=== PATIENT | male | born 1945 | race Caucasian/White ===

== ENCOUNTER 2018-01-05 16:19 | Emergency (ER) | payer MEDICARE, SELFPAY ==
[2018-01-05 16:20] VITALS: BP 151/79; PULSE 79; RESP 16; TEMP 37.1; O2SAT 96; BMI 27.8
[2018-01-05 16:45] VITALS: BP 128/71; PULSE 75; RESP 20; O2SAT 98
--- NOTE | 2018-01-05 16:50 | CT_ITS ---
STUDY: CT BRAIN WITHOUT CONTRAST REASON FOR EXAM: Male, 72 years old. Confusion RADIATION DOSAGE (If Supplied By Facility): CTDIvol = ( 44.99 ) mGy, DLP = ( 812.98 ) mGycm TECHNIQUE: Transaxial CT imaging of the brain was performed without administration of intravenous contrast material. Individualized dose optimization techniques were used for this CT. COMPARISON: None. FINDINGS: Normal soft tissue structures. Normal calvarium. There is a subdural hematoma with mixed density seen overlying the left hemisphere. This hematoma has a width of approximately 6 mm. And may be acute or acute on chronic with a mixed density. There is subjacent impression upon the left hemisphere with mild left to right subfalcine shift of midline structures by approximately 5 mm. No parenchymal hemorrhage is identified. There is no evidence of downward herniation. There is mild volume loss consistent with patient age in association with the supratentorial brain as well as the infratentorial brain. Normal basal ganglia and thalami. Normal brainstem. Vascular calcifications are present. There are no findings of an acute ischemic infarction. Normal visualized paranasal sinuses. CT/Brain/Head without Contrast IMPRESSION: There is a mixed density subdural hematoma overlying the left hemisphere with approximate 6 mm [id number] shift of midline structures. Suspect this hemorrhage is either acute or subacute. See above. N.B. : The above information has been verbally conveyed by Kate Ball MD to Dr. Eduarda Hernandez , Referring Physician, on 01/05/2018 17:51:12 (ET). Electronically Signed: aKte Ball MD at 17:45 EDT Tel , Service support , N.B. : The above information has been verbally conveyed by Kate Ball MD to Dr. Eduarda Hernandez , Referring Physician, on 01/05/2018 17:51:12 (ET).
--- NOTE | 2018-01-05 16:51 | EKG12_ITS ---
Test Reason : NEURO Blood Pressure : / mmHG Vent. Rate : 071 BPM Atrial Rate : 071 BPM P-R Int : 174 ms QRS Dur : 126 ms QT Int : 412 ms P-R-T Axes : 035 -52 031 degrees QTc Int : 447 ms Normal sinus rhythm Left axis deviation Left ventricular hypertrophy with QRS widening Abnormal ECG Confirmed by ARRON GEE, SAVANNAH ([id number]), editor newspaper BELKYS LEAHY ([id number]) on 01/08/2018 1:12:34 PM Referred By: ABDULAZIZ Confirmed By:SAVANNAH HELLER MD
[2018-01-05 17:16] LABS: Absolute Lymphocyte Count 1.86 X10^3/ul (0.83-4.51); Absolute Neutrophil Count 6.3 X10^3/uL (2.0-7.7); Basophil# 0.11 X10^3/uL; Basophil% 1.1 % (0-1); Eosinophil# 0.41 X10^3/uL; Eosinophils% 4.3 % (0-5); Hematocrit 38.5 % (40-54); Hemoglobin 12.8 g/dl (13.0-16.5); Lymphocyte # 1.86 X10^3/ul (4.0); Lymphocyte % 19.4 % (19-41); Mean Corp Hgb Conc 33.2 g/gl (32-36); Mean Corpuscular Hgb 28.6 pg (27.0-32.0); Mean Corpuscular Volume 86.1 fL (80-94); Monocyte# 0.93 X10^3/uL; Monocyte% 9.7 % (0-10); Neutrophil # 6.27 X10^3/uL (2.7-7.7); Neutrophil % 65.4 % (47-70); Platelet Count 178 K/mm3 (150-450); RBC Distribution Width CV 13.1 % (11.6-14.6); RBC Distribution Width SD 40.4 fl (35.1-43.9); Red Blood Count 4.47 M/mm3 (4.6-6.2); White Blood Count 9.6 K/mm3 (4.4-11.0)
[2018-01-05 17:17] LABS: POSITIVE COUNT NO; POSITIVE DIFFERENTIAL NO; POSITIVE MORPHOLOGY NO
[2018-01-05 17:19] LABS: International Normalized Ratio 2.4; Prothrombin Time (Protime)PT. 26.6 SECONDS (11.7-14.9)
[2018-01-05 17:25] LABS: Anion Gap 10 (5-15); BUN 14 mg/dL (7-18); BUN/Creat Ratio 15.7 RATIO (10-20); Calcium,Total 8.5 mg/dL (8.5-10.1); Chloride 109 mmol/L (98-107); Creatinine, Serum 0.89 mg/dL (0.70-1.30); EST Glomerular Filtration Rate 89 mL/min (>60); Est Glom Filt Rate - Afr Amer 108 mL/min (>60); Estimated Creatinine Clearance 73.65 ml/min; Glucose 90 mg/dL (74-106); Sodium Level 142 mmol/L (136-145)
[2018-01-05 17:30] VITALS: BP 128/71; PULSE 70; RESP 18; O2SAT 97
[2018-01-05 18:06] VITALS: BP 151/91; PULSE 70; RESP 15; TEMP 36.9; O2SAT 99
--- NOTE | 2018-01-05 18:19 | ED.VISSUMM ---
- ER Visit Summary Date of Service: 01/05/18 Chief Complaint: [] Slurred speech History of Present Illness: The patient is a 72 M [] complaining of slurred speech prior to arrival today after working outside in the sun. Patient denies any headache, nausea or vomiting, chest pain, shortness of breath, paresthesias. He reports his symptoms lasted 2 minutes and then resolved completely. He does report he is on Coumadin for history of coronary artery disease status post CABG. BGT upon arrival was 93. No other complaints at this time. Physical Examination: [] Afebrile, vital signs stable. NIH score upon arrival was 0. Cranial nerves II through XII intact. Loss 5 out of 5 bilateral upper and lower extremity muscle strength. Sensory intact throughout all extremities and the face. Cardiovascular exam is regular rate and rhythm. Lungs are clear to auscultation. Abdomen is soft and nontender. Test Results: [] INR measured 2.4. CBC, BMP within normal limits. CT of the head reveals acute left-sided subdural with 5-6 mm midline shift. Emergency Department Course and Treatment: [] Patient was reevaluated on serial exam and had a NIH score of 0 again. Patient was counseled regarding his diagnostic and laboratory findings. Patient was given vitamin K and K Centra. Case discussed with neuro aircraft mechanic structures at [facility]. They will except the patient in transfer from ER to ER. Treatment Plan: [] Transfer to [facility] for evaluation by neurosurgical staff. Disposition: [] Transfer to [facility], critical. Impression: [] Acute subdural hemorrhage This note was generated with [employer] dictation software. It may contain incorrect words, spelling, and punctuation that were not noted in review of the chart prior to signing ED Disposition - Plan for ED Patient: Chief Complaint: Neuro S/Sx Referrals: Eyad Duvall MD [Primary Care Provider] -
--- NOTE | 2018-01-05 18:22 | ED.DCSUM_ITS ---
- ER Visit Summary Date of Service: 01/05/18 Chief Complaint: [] Slurred speech History of Present Illness: The patient is a 72 M [] complaining of slurred speech prior to arrival today after working outside in the sun. Patient denies any headache, nausea or vomiting, chest pain, shortness of breath, paresthesias. He reports his symptoms lasted 2 minutes and then resolved completely. He does report he is on Coumadin for history of coronary artery disease status post CABG. BGT upon arrival was 93. No other complaints at this time. Physical Examination: [] Afebrile, vital signs stable. NIH score upon arrival was 0. Cranial nerves II through XII intact. Loss 5 out of 5 bilateral upper and lower extremity muscle strength. Sensory intact throughout all extremities and the face. Cardiovascular exam is regular rate and rhythm. Lungs are clear to auscultation. Abdomen is soft and nontender. Test Results: [] INR measured 2.4. CBC, BMP within normal limits. CT of the head reveals acute left-sided subdural with 5-6 mm midline shift. Emergency Department Course and Treatment: [] Patient was reevaluated on serial exam and had a NIH score of 0 again. Patient was counseled regarding his diagnostic and laboratory findings. Patient was given vitamin K and K Centra. Case discussed with neuro residential pest control technician at [facility]. They will except the patient in transfer from ER to ER. Treatment Plan: [] Transfer to [facility] for evaluation by neurosurgical staff. Disposition: [] Transfer to [facility], critical. Impression: [] Acute subdural hemorrhage This note was generated with [employer] dictation software. It may contain incorrect words, spelling, and punctuation that were not noted in review of the chart prior to signing ED Disposition - Plan for ED Patient: Chief Complaint: Neuro S/Sx Referrals: Eyad Duvall MD [Primary Care Provider] -
[2018-01-05 18:24] VITALS: BP 151/91; PULSE 70; RESP 18; O2SAT 98
[2018-01-05 18:30] VITALS: BP 154/86; PULSE 71; RESP 18; O2SAT 96
[2018-01-05 21:21] LABS: Bedside Glucose 93 mg/dL (70-110)
== END 2018-01-05 19:06 | disposition short-term general hospital (02) ==
PROVIDERS: Emergency Provider Emergency Medicine; Family Provider Internal Medicine; PCP Family Medicine
DX: I62.01 Nontraumatic acute subdural hemorrhage (principal); R47.81 Slurred speech; I25.10 Atherosclerotic heart disease of native coronary artery without angina pectoris; E78.00 Pure hypercholesterolemia, unspecified; Z95.1 Presence of aortocoronary bypass graft; Z79.01 Long term (current) use of anticoagulants; Z79.82 Long term (current) use of aspirin; Z79.899 Other long term (current) drug therapy
CPT/HCPCS: 70450; 80048; 82962; 85025; 85610; 93005; 96365; 96367; 99285; C9132; A4216; J3490

== ENCOUNTER 2018-01-14 16:32 | Emergency (ER) | payer MEDICARE, SELFPAY ==
[2018-01-14] VITALS (7 sets, daily range): BP systolic 137–184; BP diastolic 82–105; PULSE 67–70; RESP 15–18; TEMP 37.3; O2SAT 97–98; BMI 27.8
--- NOTE | 2018-01-14 16:34 | CT_ITS ---
STUDY: CT BRAIN WITHOUT CONTRAST REASON FOR EXAM: Male, 72 years old. Speech issues. Recent cranial surgery. RADIATION DOSAGE (If Supplied By Facility): CTDIvol = ( 60.81 ) mGy, DLP = ( 1044.28 ) mGycm TECHNIQUE: Transaxial CT imaging of the brain was performed without administration of intravenous contrast material. Individualized dose optimization techniques were used for this CT. COMPARISON: January 05, 2018. FINDINGS: There is soft tissue air over the left parietal region. There is a relatively new left temporoparietal craniotomy. There is air and subdural hematoma beneath the craniotomy site. This measures 0.7 cm in greatest width. There is also seen anteriorly in the left calvarium. There is slight sulcal effacement in the left frontal parietal region there is minimal midline shift of 2 mm. There is no marked mass effect. Normal white matter tracts of the cerebral hemispheres. Normal basal ganglia and thalami. Normal brainstem. Normal cerebellum. There are no findings of an acute ischemic infarction. Normal visualized paranasal sinuses. CT/Brain/Head without Contrast IMPRESSION: 1. Left sided subdural hematoma with air in the region of the craniotomy site and anteriorly in the right frontal lobe. Maximum thickness is 7 mm. This appears slightly smaller in size and the previous exam. There is mild midline shift and sulcal effacement left cerebral hemisphere. 2. Left parietal craniotomy not seen on the previous examination. Electronically Signed: Vivek Silva DO at 17:10 EDT Tel [phone], Service support ,
[2018-01-14 16:41] LABS: Bedside Glucose 90 mg/dL (70-110)
--- NOTE | 2018-01-14 16:43 | EKG12_ITS ---
Test Reason : NEURO Blood Pressure : / mmHG Vent. Rate : 067 BPM Atrial Rate : 067 BPM P-R Int : 174 ms QRS Dur : 128 ms QT Int : 418 ms P-R-T Axes : 041 -46 043 degrees QTc Int : 441 ms Normal sinus rhythm Left axis deviation Left ventricular hypertrophy with QRS widening Abnormal ECG Confirmed by CLIFFORD GEE, EUGENE ([id number]), film editor supervisor BELKYS LEAHY ([id number]) on 01/18/2018 10:23:29 AM Referred By: SADIA Confirmed By:EUGENE HORTON MD
--- NOTE | 2018-01-14 16:50 | RAD_ITS ---
STUDY: X-RAY CHEST REASON FOR EXAM: Male, 72 years old. Subdural hematoma evacuation Sunday. Today with slurred speech and difficulty speaking. TECHNIQUE: Single AP portable view of the chest. COMPARISON: October 18, 2015. FINDINGS: The lungs are clear and expanded. There is no demonstrated pleural abnormality. Sternal cerclage wires and vascular clips are present from a prior sternotomy and coronary artery bypass graft procedure (CABG). The heart is normal in size. Normal mediastinum and ayla. Normal visualized pulmonary arteries. Normal visualized aortic arch and descending thoracic aorta. The thoracic spine is obscured by the mediastinum. Normal visualized ribs, clavicles, and shoulders. There is no demonstrated abnormality of the visualized soft tissue structures of the upper abdomen. RAD/Chest 1 View IMPRESSION: No acute cardiopulmonary disease or interval change. Electronically Signed: Vivek Silva DO at 17:10 EDT Tel [phone], Service support ,
[2018-01-14 16:55] LABS: Absolute Lymphocyte Count 2.49 X10^3/ul (0.83-4.51); Basophil# 0.06 X10^3/uL; Basophil% 0.7 % (0-1); Eosinophil# 0.42 X10^3/uL; Eosinophils% 5.2 % (0-5); Hematocrit 37.4 % (40-54); Hemoglobin 12.3 g/dl (13.0-16.5); Lymphocyte # 2.49 X10^3/ul (4.0); Lymphocyte % 30.8 % (19-41); Mean Corp Hgb Conc 32.9 g/gl (32-36); Mean Corpuscular Hgb 28.5 pg (27.0-32.0); Mean Corpuscular Volume 86.8 fL (80-94); Mean Platelet Vol. 10.3 fl (6.2-12.0); Monocyte# 1.15 X10^3/uL; Monocyte% 14.2 % (0-10); Neutrophil # 3.95 X10^3/uL (2.7-7.7); Platelet Count 200 K/mm3 (150-450); RBC Distribution Width CV 13.3 % (11.6-14.6); RBC Distribution Width SD 42.6 fl (35.1-43.9); Red Blood Count 4.31 M/mm3 (4.6-6.2); White Blood Count 8.1 K/mm3 (4.4-11.0)
[2018-01-14 16:59] LABS: International Normalized Ratio 1.1; Partial Thromboplast Time 29.7 Seconds (24.1-36.2); Prothrombin Time (Protime)PT. 13.7 SECONDS (11.7-14.9)
[2018-01-14 17:13] LABS: POSITIVE COUNT NO; POSITIVE DIFFERENTIAL NO; POSITIVE MORPHOLOGY NO
[2018-01-14 17:26] LABS: Anion Gap 9 (5-15); BUN 12 mg/dL (7-18); BUN/Creat Ratio 14.9 RATIO (10-20); Calcium,Total 8.8 mg/dL (8.5-10.1); Chloride 106 mmol/L (98-107); EST Glomerular Filtration Rate 101 mL/min (>60); Est Glom Filt Rate - Afr Amer 122 mL/min (>60); Estimated Creatinine Clearance 81.94 ml/min; Glucose 92 mg/dL (74-106); Sodium Level 141 mmol/L (136-145)
--- NOTE | 2018-01-14 17:50 | ED.VISSUMM ---
- ER Visit Summary Date of Service: 01/14/18 Chief Complaint: Trouble speaking History of Present Illness: The patient is a 72 M who presents with acute difficulty speaking. The states that he had the exact same symptoms when he presented here was diagnosed with a subdural hemorrhage. He was transferred to [facility] and 6 days ago had a craniotomy and evacuation of his subdural. He was discharged 2 days ago. Roughly an hour before presentation he developed slurred speech. He was just at rest when symptoms began. The patient otherwise has no complaints. He denies any headache nausea or vomiting. Review of systems otherwise negative. He was on warfarin and aspirin due to A. fib he is currently on no anticoagulation or antiplatelet therapy. No fall or injury. Physical Examination: Afebrile vitals are notable for blood pressure 169/91 otherwise normal Left sided craniotomy surgical wound is clean dry and intact Pupils are equally round and reactive to light Extraocular motion intact NIH stroke scale is 1 due to dysarthria there are no other focal or lateralizing neurological deficits he has normal strength and sensation he does not have any ataxia Heart is regular rate and rhythm Lungs are clear Abdomen soft and nontender Test Results: EKG shows sinus rhythm at a rate of 67. Laboratory studies unremarkable including normal INR. Chest x-ray shows no acute process. CT of the head shows a left subdural hematoma which is slightly decreased from prior imaging that we have access to. There is mild midline shift. Air is noted at the site of the craniotomy incision as well. Maximal thickness of the subdural is 7 mm. Emergency Department Course and Treatment: Patient presents with symptoms concerning for recurrent bleeding. Given there is only slight decrease in subdural volume from our prior imaging and he did have craniotomy with evacuation I suspect that he has had acute rebleeding. Patient will be discussed with [facility] and plan is for transfer to that facility. Treatment Plan: [] Disposition: Transfer Impression: Subdural hemorrhage Dysarthria This note was generated with [employer] dictation software. It may contain incorrect words, spelling, and punctuation that were not noted in review of the chart prior to signing ED Disposition - Plan for ED Patient: Chief Complaint: Neuro S/Sx Referrals: Eyad Duvall MD [Primary Care Provider] -
== END 2018-01-14 19:11 | disposition short-term general hospital (02) ==
PROVIDERS: Emergency Provider Emergency Medicine; Family Provider Internal Medicine; PCP Family Medicine
DX: I62.00 Nontraumatic subdural hemorrhage, unspecified (principal); R47.1 Dysarthria and anarthria; I48.91 Unspecified atrial fibrillation; I25.10 Atherosclerotic heart disease of native coronary artery without angina pectoris; E78.00 Pure hypercholesterolemia, unspecified; E11.9 Type 2 diabetes mellitus without complications; Z95.1 Presence of aortocoronary bypass graft; Z79.84 Long term (current) use of oral hypoglycemic drugs; Z79.899 Other long term (current) drug therapy
CPT/HCPCS: 70450; 71045; 80048; 82962; 84484; 85025; 85610; 85730; 93005; 99285; A4216

== ENCOUNTER 2020-04-03 17:34 | Emergency (ER) | payer MEDICARE, SELFPAY ==
[2020-04-03 17:34] VITALS: BP 175/93; PULSE 65; RESP 16; TEMP 36.3; O2SAT 96; BMI 26.4
--- NOTE | 2020-04-03 17:51 | EKG12_ITS ---
Test Reason : Blood Pressure : / mmHG Vent. Rate : 063 BPM Atrial Rate : 063 BPM P-R Int : 234 ms QRS Dur : 132 ms QT Int : 428 ms P-R-T Axes : 009 -49 025 degrees QTc Int : 437 ms Sinus rhythm with 1st degree A-V block Left axis deviation Left ventricular hypertrophy with QRS widening Abnormal ECG Confirmed by CLIFFORD GEE, EUGENE ([id number]), commissioning editor NISHANT VILLALOBOS ([id number]) on 04/05/2020 9:02:19 AM Referred By: LIBORIO Confirmed By:EUGENE HORTON MD
[2020-04-03 18:27] LABS: Absolute Lymphocyte Count 2.96 X10^3/uL (0.83-4.51); Absolute Neutrophil Count 3.9 X10^3/uL (2.0-7.7); Basophil% 1.2 % (0-1); Eosinophils% 6.1 % (0-5); Hematocrit 45.7 % (40-54); Hemoglobin 15.3 g/dL (13.0-16.5); Lymphocyte # 2.96 X10^3/ul (4.0); Lymphocyte % 36.2 % (19-41); Mean Corp Hgb Conc 33.5 g/dL (32-36); Mean Corpuscular Hgb 29.4 pg (27.0-32.0); Mean Corpuscular Volume 87.9 fL (80-94); Mean Platelet Vol. 11.1 fl (6.2-12.0); Monocyte# 0.69 X10^3/uL; Monocyte% 8.4 % (0-10); NRBC Flagged by Analyzer 0 % (0-5); Neutrophil # 3.91 X10^3/uL (2.7-7.7); Platelet Count 134 K/mm3 (150-450); RBC Distribution Width CV 12.6 % (11.6-14.6); RBC Distribution Width SD 40.5 fl (35.1-43.9); White Blood Count 8.2 K/mm3 (4.4-11.0)
[2020-04-03 18:29] LABS: Anion Gap 4 (5-15); BUN 12 mg/dL (7-18); BUN/Creat Ratio 13.3 RATIO (10-20); Calcium,Total 9.1 mg/dL (8.5-10.1); Chloride 111 mmol/L (98-107); EST Glomerular Filtration Rate 88 mL/min (>60); Est Glom Filt Rate - Afr Amer 106 mL/min (>60); Estimated Creatinine Clearance 70.72 ml/min; Glucose 113 mg/dL (74-106); Potassium 4.3 mmol/L (3.5-5.1); Sodium Level 141 mmol/L (136-145)
[2020-04-03 18:30] VITALS: BP 129/78; BP 143/85; BP 147/86; PULSE 61; PULSE 63; PULSE 66
--- NOTE | 2020-04-03 19:31 | ED.DCSUM_ITS ---
- ER Visit Summary Date of Service: 04/03/20 Chief Complaint: Lightheadedness History of Present Illness: The patient is a [address] Conoey. Patient reports that he began taking 25 mg of losartan a day on March 27. He has not taken it today and takes it at night. States that today he was standing out in the barn approximately 45 minutes mainly in [address] He began feeling very lightheaded and off-balance. He was diaphoretic and nauseated. Did not vomit. No palpitations. No chest pain or shortness of breath. No vertigo. Patient states that he went into the house and laid down for a couple of hours. When he stood up to walk into the kitchen he became lightheaded and after approximately 5 minutes in the kitchen he had similar symptoms again. He denies any vertigo at that time. No change in his vision. No trouble talking. No other neurologic symptoms. Review of systems: General: No fever, chills, cold sweats. Cardiovascular: No chest pain, palpitations. Respiratory: No cough, shortness of breath, dyspnea on exertion. Gastrointestinal: No abdominal pain, nausea, vomiting, diarrhea, melena, or hematochezia. Genitourinary: No dysuria, frequency, hematuria. Skin: No rash. Neuro: No headache, numbness, weakness. Physical Examination: Vitals: Stable. Afebrile. General: Well-nourished and well-developed. Head: Normocephalic atraumatic. Neck: Supple, no lymphadenopathy. No JVD. Nontender. Cardiovascular: Regular rate and rhythm. No murmurs. Respiratory: No respiratory distress. Clear to auscultation bilaterally. Abdominal: Soft, nontender, nondistended, normal bowel sounds. No guarding, rebound, or peritoneal signs. Back: Nontender. Extremities: Nontender, no edema. Skin: Normal color, no rash. Neurologic: Alert and oriented ?3. Cranial nerves II through XII are intact. Normal strength and sensation. Psych: Normal affect. Test Results: EKG is sinus with first-degree AV block rate of 63. His QRS is 132. However, this is unchanged from December 2017. At that time his QRS was 128. CBC shows platelets 134 and eosinophils of 6. Chem-7 shows a chloride of 111 glucose of 113. Emergency Department Course and Treatment: Patient had negative orthostatic vital signs. He is resting comfortably. He was given a liter of normal saline. Treatment Plan: Had a prolonged discussion the patient at this may be a side effect of the losartan and have suggested that he stop this. At this time I do not want to place him on a new antihypertensive because I think it will confuse the issue of what is actually the source of this. He is instructed to follow-up with his primary care physician in 2 days for another exam. Return to the emergency department for any worsening symptoms. Disposition: To home in improved and stable condition. Impression: 1. Near syncope, uncertain cause. This note was generated with [employer] software. It may contain incorrect words, spelling, and punctuation that were not noted in review of the chart prior to signing ED Disposition - Plan for ED Patient: Disposition: Home or Assisted Living Instructions: ED Near-Fainting Uncertain Cause Referrals: Eyad Duvall MD [Primary Care Provider] - 2 Days
[2020-04-03 19:52] VITALS: BP 149/84; PULSE 55; RESP 21; O2SAT 97
== END 2020-04-03 19:53 | disposition home or self-care (01) ==
LOC: ED 18:14
PROVIDERS: Emergency Provider Emergency Medicine; PCP Family Medicine
DX: R42 Dizziness and giddiness (principal); I25.10 Atherosclerotic heart disease of native coronary artery without angina pectoris; I10 Essential (primary) hypertension; Z79.82 Long term (current) use of aspirin
CPT/HCPCS: 80048; 85025; 93005; 99285; J7030; A4216

== ENCOUNTER 2021-08-16 11:23 | Emergency (ER) | payer MEDICARE, SELFPAY ==
[2021-08-16 11:25] VITALS: BP 179/111; PULSE 68; RESP 16; TEMP 36.1; O2SAT 98; BMI 26.1
--- NOTE | 2021-08-16 11:43 | EKG12_ITS ---
Test Reason : Blood Pressure : / mmHG Vent. Rate : 061 BPM Atrial Rate : 061 BPM P-R Int : 236 ms QRS Dur : 134 ms QT Int : 400 ms P-R-T Axes : 022 -48 069 degrees QTc Int : 402 ms Sinus rhythm with 1st degree A-V block with occasional Premature ventricular complexes Left axis deviation Left ventricular hypertrophy with QRS widening Nonspecific T wave abnormality Abnormal ECG Confirmed by CLIFFORD GEE, EUGENE ([id number]), commercial production editor NISHANT VILLALOBOS ([id number]) on 08/22/2021 8:30:11 AM Referred By: CALEB Confirmed By:EUGENE HORTON MD
--- NOTE | 2021-08-16 11:43 | CT_ITS ---
STUDY: CT BRAIN WITHOUT CONTRAST REASON FOR EXAM: Male, 75 years old. Headache RADIATION DOSAGE (If Supplied By Facility): CTDIvol = ( 44.99 ) mGy, DLP = ( 812.98 ) mGycm TECHNIQUE: Transaxial CT imaging of the brain was performed without administration of intravenous contrast material. Individualized dose optimization techniques were used for this CT. COMPARISON: Comparison is made with prior study dated 01/14/2018. FINDINGS: Normal soft tissue structures. The patient is status post left frontal parietal craniotomy. There is mild cerebral atrophy with widening of the extra-axial spaces and ventricular dilatation. Normal white matter tracts of the cerebral hemispheres. Normal basal ganglia and thalami. Normal brainstem. Normal cerebellum. There is no intracranial hemorrhage. There are no findings of an acute ischemic infarction. Atherosclerotic calcification of the cavernous portions of the internal carotid arteries bilaterally. There is a 1.5 cm retention cyst or polyp at the base of the right maxillary sinus. CT/Brain/Head without Contrast IMPRESSION: Chronic involutional changes of the brain. The patient is status post left frontal parietal craniotomy. Electronically Signed: Toney Maradiaga MD at 12:28 EST , Service support ,
[2021-08-16 11:55] VITALS: BP 180/97; PULSE 62; RESP 21; O2SAT 96
[2021-08-16] MEDS: Labetalol (Prefilled) 20 MG/4 ML IV (12:02)
[2021-08-16 12:08] LABS: Absolute Lymphocyte Count 1.75 X10^3/uL (0.83-4.51); Absolute Neutrophil Count 3.4 X10^3/uL (2.0-7.7); Basophil# 0.08 X10^3/uL; Basophil% 1.3 % (0-1); Eosinophils% 4.9 % (0-5); Hematocrit 43.4 % (40-54); Hemoglobin 14.8 g/dL (13.0-16.5); Lymphocyte # 1.75 X10^3/ul (0.83-4.51); Lymphocyte % 28.4 % (19-41); Mean Corp Hgb Conc 34.1 g/dL (32-36); Mean Corpuscular Hgb 29.7 pg (27.0-32.0); Mean Platelet Vol. 11.5 fl (6.2-12.0); Monocyte# 0.66 X10^3/uL; Monocyte% 10.7 % (0-10); NRBC Flagged by Analyzer 0 % (0-5); Neutrophil # 3.37 X10^3/uL (2.7-7.7); Neutrophil % 54.5 % (47-70); Platelet Count 115 K/mm3 (150-450); RBC Distribution Width CV 12.2 % (11.6-14.6); RBC Distribution Width SD 39.3 fl (35.1-43.9); Red Blood Count 4.99 M/mm3 (4.6-6.2); White Blood Count 6.2 K/mm3 (4.4-11.0)
--- NOTE | 2021-08-16 12:15 | RAD_ITS ---
STUDY: X-RAY CHEST REASON FOR EXAM: Male, 75 years old. Hypertension TECHNIQUE: Single AP portable view of the chest. COMPARISON: Comparison is made with prior study dated 01/14/2018. FINDINGS: EKG electrodes are seen. Hyperinflation. The lungs are clear. There is no demonstrated pleural abnormality. Sternal cerclage wires and vascular clips are present from a prior sternotomy and coronary artery bypass graft procedure (CABG). Normal mediastinum and ayla. Normal visualized pulmonary arteries. There is atherosclerotic tortuosity of the aortic arch and descending thoracic aorta. Normal visualized thoracic spine. Normal visualized ribs, clavicles, and shoulders. There is no demonstrated abnormality of the visualized soft tissue structures of the upper abdomen. RAD/Chest 1 View (Portable) IMPRESSION: Hyperinflation. The lungs are clear. Electronically Signed: Toney Maradiaga MD at 12:29 EST , Service support ,
[2021-08-16 12:30] LABS: ALB/GLOB Ratio 0.9 RATIO (0.9-2.4); AST(SGOT) 25 U/L (15-37); Alanine Aminotransfer ALT/SGPT 31 U/L (16-61); Albumin, Serum 3.7 g/dL (3.2-5.0); Alkaline Phosphatase 56 U/L (45-117); Anion Gap 7 (5-15); BUN 9 mg/dL (7-18); BUN/Creat Ratio 10.2 RATIO (10-20); Calcium,Total 8.9 mg/dL (8.5-10.1); Chloride 108 mmol/L (98-107); Creatinine, Serum 0.88 mg/dL (0.70-1.30); EST Glomerular Filtration Rate 90 mL/min (>60); Est Glom Filt Rate - Afr Amer 109 mL/min (>60); Estimated Creatinine Clearance 71.25 ml/min; Globulin 4.1 g/dL (2.2-4.2); Glucose 144 mg/dL (74-106); Potassium 3.8 mmol/L (3.5-5.1); Protein, Total 7.8 g/dL (6.4-8.2); Sodium Level 141 mmol/L (136-145); Thyroid Stim Hormone (TSH) 0.08 uIU/mL (0.358-3.74); Troponin-I HS 11 pg/mL (3.0-78.0)
[2021-08-16 13:30] VITALS: BP 126/87; PULSE 58; RESP 21; O2SAT 99
[2021-08-16 13:57] VITALS: BP 138/87; PULSE 58; RESP 19; O2SAT 98
--- NOTE | 2021-08-16 14:09 | EDS_ITS ---
HPI History of Present Illness Chief Complaint: Hypertension Onset/Context/Timing Onset: Today Context: Sudden Onset Timing: Continuous Quality: Uneasy Location: Head Worsened by: Nothing Relieved by: Rest Narrative Narrative: Patient presents with elevated blood pressure that began today. Joe verdin states he has a uneasy feeling in his head. Patient states he feels lightheaded. Patient states his blood pressure medicine was recently increased. Patient states he was told to take 1-1/2 pills/day instead of a half a pill per day of losartan. Patient states his symptoms seem to get better with rest. Patient denies any headaches. Patient denies any chest pain or shortness of breath. Patient denies any nausea or vomiting. [facility] Medical History (Updated 08/16/21 @ 14:[address] John Sampson DO) Acquired hypothyroidism Chronic atrial fibrillation HTN (hypertension) Home Medications sotalol [Betapace AF (Beta Deepika)] 40 mg PO BID 10/18/15 [History Last Taken 10/18/15] levothyroxine 112 mcg PO SUMOTUTHFRSA 01/05/18 [History Last Taken Unknown] aspirin 81 mg PO DAILY 04/03/20 [History Last Taken Unknown] levothyroxine 125 mcg PO WE 04/03/20 [History Last Taken Unknown] losartan 75 mg PO DAILY 04/03/20 [History Last Taken Unknown] rosuvastatin 5 mg PO QHS 04/03/20 [History Last Taken Unknown] Allergy/AdvReac Type Severity Reaction Status Date / Time No Known Allergies Allergy Verified 08/16/21 11:26 Surgical History (Updated 08/16/21 @ 14:[address] John Sampson DO) H/O craniotomy History of coronary artery bypass graft Social History Smoking Status: Never smoker ROS ROS ED Constitutional Constitutional ED: Denies chills or fever(s) Eyes Eyes: Denies blurry vision or change in vision ENT ENT ED: Denies rhinorrhea or sore throat Cardiovascular Cardiovascular: Denies chest pain or palpitations Respiratory/Chest Respiratory/Chest: Denies cough or dyspnea Gastrointestinal Gastrointestinal: Denies nausea or vomiting Genitourinary Genitourinary ED: Denies dysuria or hematuria Musculoskeletal Musculoskeletal: Denies back pain or neck pain Integumentary Denies abscess or rash Neurologic Neurologic: Denies headache(s) or weakness Allergic/Immunologic Allergic/Immunologic ED: Denies mouth swelling or urticaria EXAM Physical Exam Const Vital Signs: 08/16/21 11:25 08/16/21 11:55 08/16/21 11:57 Temperature 96.9 F L Temperature Source Temporal Pulse Rate 68 62 Respiratory Rate 16 21 H Respiratory Effort Normal Non-Labored Respiratory Pattern Normal Blood Pressure 179/111 H 180/97 H Blood Pressure Mean 133 124 Pulse Ox 98 96 Oxygen Delivery Method Room Air Room Air 08/16/21 13:30 08/16/21 13:57 Temperature Temperature Source Pulse Rate 58 L 58 L Respiratory Rate 21 H 19 H Respiratory Effort Respiratory Pattern Blood Pressure 126/87 H 138/87 H Blood Pressure Mean 100 104 Pulse Ox 99 98 Oxygen Delivery Method Room Air Room Air Positive well nourished and well developed General Appearance ED: well developed HEENT Reports moist mucous membranes Neck supple and no JVD Resp normal respiratory effort and clear to auscultation bilaterally Cardio regular rate, regular rhythm and no murmurs GI normal to inspection, nondistended, normoactive bowel sounds and non-tender Palpation: soft Extremity normal to inspection General Extremety ED: Negative for edema or tenderness General Extremity: Negative for edema Neuro oriented x3, CN's II-XII intact bilaterally and no sensory deficits noted Sensorium / Orientation: alert Motor Exam: strength 5/5 throughout Psych mental status grossly normal Skin no rashes or lesions noted MDM MDM MDM Narrative Medical decision making narrative: Patient was given a dose of IV labetalol here. CBC and comprehensive metabolic profile were obtained and were essentially within normal limits. TSH was obtained and was low at 0.08. Portable 1 view chest x-ray was obtained. On my interpretation, lung byers are clear. There is normal cardiac silhouette. Bony thorax is normal. There is no acute process noted. Radiologist also interpreted the x-ray and agrees. CT scan of the brain was obtained. There is no acute intracranial abnormality. This was interpreted by the radiologist and reviewed by myself. Patient's blood pressure improved to 138/87. Patient is feeling better on reevaluation. Case was discussed with Dr. Duvall, his primary care physician. He recommended taking the 112 mcg of levothyroxine daily. He will follow up with the patient in the office this week or early next week. Patient understands and is agreeable with the plan. All questions were answered. Lab Data Attestation: I reviewed the patient's lab results. Labs: Laboratory Results - last 24 hr 08/16/21 08/16/21 11:55 11:55 WBC 6.2 RBC 4.99 Hgb 14.8 Hct 43.4 MCV 87.0 MCH 29.7 MCHC 34.1 RDW Std Deviation 39.3 RDW Coeff of Sharifa 12.2 Plt Count 115 L MPV 11.5 Immature Gran % (Auto) 0.200 Neut % (Auto) 54.5 Lymph % (Auto) 28.4 Hernando % (Auto) 10.7 H Eos % (Auto) 4.9 Baso % (Auto) 1.3 H Absolute Neuts (auto) 3.4 Absolute Lymphs (auto) 1.75 Nucleated RBC % 0 Sodium 141 Potassium 3.8 Chloride 108 H Carbon Dioxide 26.0 Anion Gap 7 BUN 9 Creatinine 0.88 Estim Creat Clear Calc 71.25 Est GFR (MDRD) Af Amer 109 Est GFR (MDRD) Non-Af 90 BUN/Creatinine Ratio 10.2 Glucose 144 H Calcium 8.9 Total Bilirubin 1.00 AST 25 ALT 31 Alkaline Phosphatase 56 Troponin I High Sens 11 Total Protein 7.8 Albumin 3.7 Globulin 4.1 Albumin/Globulin Ratio 0.9 TSH 0.08 L Radiography Chest X-Ray - ED: 1 View, Read by ED Physician, Read by Radiologist and Normal Diagnostic Testing: Clinical Impression(s) from Imaging Studies Brain CT 08/16/21 11:43 IMPRESSION: Chronic involutional changes of the brain. The patient is status post left frontal parietal craniotomy. Electronically Signed: Toney Maradiaga MD at 12:28 EST , Service support , Chest X-Ray 08/16/21 12:15 IMPRESSION: Hyperinflation. The lungs are clear. Electronically Signed: Toney Maradiaga MD at 12:29 EST , Service support , EKG Initial EKG: Attestation: I personally reviewed and interpreted this EKG as follows: Interpretation: Sinus Rhythm (With first-degree AV block with a rate of 61 with occasional PVCs) and Non-Specific ST Changes Comments: Left ventricular hypertrophy Prior EKG tracings: available for review Prior: Unchanged (04/03/2020) Discharge Plan Triage Chief Complaint: Hypertension ED Provider: John Sampson Dx/Rx/DC Orders Clinical Impression: HTN (hypertension), Acquired hypothyroidism Prescriptions: No Action sotalol [Betapace AF] 80 MG tablet 40 mg PO BID RF: 0 levothyroxine 112 MCG tablet 112 mcg PO SUMOTUTHFRSA RF: 0 aspirin 81 MG tablet,delayed release (DR/EC) 81 mg PO DAILY RF: 0 levothyroxine 125 MCG tablet 125 mcg PO WE RF: 0 losartan 25 MG tablet 75 mg PO DAILY RF: 0 rosuvastatin 5 MG tablet 5 mg PO QHS RF: 0 Primary Care Provider: Eyad Duvall Referrals: Eyad Duvall MD [Primary Care Provider] - 3-5 Days Activity Restrictions/Additional Instructions: Take your dose of levothyroxine 112 mcg every day. Disposition Disposition: Home, Self Care
[2021-08-16 14:46] VITALS: BP 137/96; PULSE 58; RESP 16; O2SAT 96
== END 2021-08-16 14:53 | disposition home or self-care (01) ==
PROVIDERS: Emergency Provider Emergency Medicine; PCP Family Medicine
DX: I10 Essential (primary) hypertension (principal); E03.9 Hypothyroidism, unspecified; I48.20 Chronic atrial fibrillation, unspecified; Z79.82 Long term (current) use of aspirin; Z79.899 Other long term (current) drug therapy
CPT/HCPCS: 70450; 71045; 80053; 84443; 84484; 85025; 93005; 96374; 99285; A4216